=== PATIENT | male | born 1970 | race Caucasian/White ===

== ENCOUNTER 2017-12-04 11:55 | Emergency (ER) | payer BC ==
[2017-12-04 12:00] VITALS: BMI 25.0
--- NOTE | 2017-12-04 12:19 | PDOC ---
History of Present Illness - General Chief Complaint: Pain, Acute Stated Complaint: RIGHT CALF PAIN Time Seen by Provider: 12/04/17 12:14 - History of Present Illness Initial Comments: 12/04/17 15:24 Chief complaint: Right calf pain History of present illness: Right calf pain for several weeks following an injury. The patient has been walking quite a bit and not resting the leg, and the pain is not resolving. Review of systems: Denies chest pain, shortness of breath, abdominal pain, nausea, vomiting, diarrhea, visual or focal neurologic symptoms, distal numbness tingling pain or weakness of the lower extremity. Past medical history: Mild hypertension controlled on atenolol. No history of blood clots. No smoking. No other risk factors Social/family history reviewed and noncontributory Physical exam: Alert cheerful and cooperative no acute distress Afebrile, vital signs normal Right calf: Mild swelling and tenderness posteriorly, without palpable mass or cords. Homans is negative. Pulses full and symmetric. No distal sensory or motor deficits. No deformity of the knee or ankle. Impression: Calf muscle strain, rule out DVT Plan: Ultrasound is negative. Suspicion is low due to physical exam and lack of risk factors. Percy wrap applied. Crutches, nonweightbearing, and orthopedic follow-up. Anti-inflammatory medication as directed. Adequately ambulatory upon discharge with mother to follow-up as directed Past History - Past Medical History Allergies/Adverse Reactions: Allergies Allergy/AdvReac Type Severity Reaction Status Date / Time No Known Allergies Allergy Verified 12/04/17 11:56 Home Medications: Ambulatory Orders Atenolol [Tenormin] 0 mg PO DAILY 12/04/17 Ibuprofen 800 mg PO TID PRN #20 tablet 12/04/17 COPD: No DVT: No HTN: Yes - Suicide/Smoking/Psychosocial Hx Smoking History: Never smoked Hx Alcohol Use: No Drug/Substance Use Hx: No Substance Use Type: None *Physical Exam - Vital Signs Last Vital Signs Temp Pulse Resp BP Pulse Ox 98 F 65 17 126/92 99 12/04/17 11:55 12/04/17 11:55 12/04/17 11:55 12/04/17 11:55 12/04/17 11:55 ED Treatment Course - RADIOLOGY Radiology Studies Ordered: Category Date Time Status DUPLEX VASCUL US-1 LEG [US] Stat Ultrasound 12/04/17 12:09 Ordered *DC/Admit/Observation/Transfer Diagnosis at time of Disposition: Strain of calf muscle Qualifiers: Encounter type: initial encounter Laterality: right Qualified Code(s): S86.811A - Strain of other muscle(s) and tendon(s) at lower leg level, right leg , initial encounter - Discharge Dispostion Disposition: HOME Condition at time of disposition: Stable Decision to Admit order: No - Prescriptions Prescriptions: Ibuprofen 800 mg PO TID PRN #20 tablet PRN Reason: Pain - Referrals Referrals: Scooby Alfredo MD [Primary Care Provider] - 1 week Sunny Bee MD [Staff Physician] - 1 week - Patient Instructions Printed Discharge Instructions: DI for Calf Muscle Strain Additional Instructions: Rest, compression bandage, medication as directed. See orthopedist if no improvement one week. - Post Discharge Activity
[2017-12-04 12:39] VITALS: BP 126/92; PULSE 65; TEMP 98
== END 2017-12-04 13:25 | disposition home or self-care (01) ==
LOC: FER 11:55
DX: S86.811A Strain of other muscle(s) and tendon(s) at lower leg level, right leg, initial encounter (principal); X58.XXXA Exposure to other specified factors, initial encounter; Y93.89 Activity, other specified; Y92.9 Unspecified place or not applicable; I10 Essential (primary) hypertension
CPT/HCPCS: 93971-TC; 99281-25